=== PATIENT | male | born 1960 | race American Indian/Alaskan Native ===

== ENCOUNTER 2018-12-02 15:42 | Emergency (ER) | payer OTHER ==
[2018-12-02] MEDS ORDERED: PROVENTIL IH ONE ×2 (16:27→19:19)
--- NOTE | 2018-12-02 16:34 | Emergency Department Report ---
ED General Adult HPI - General Chief complaint: Dyspnea/Respdistress Stated complaint: HBP/TONYA Time Seen by Provider: 12/02/18 16:07 Source: patient Mode of arrival: Ambulatory Limitations: No Limitations - History of Present Illness Initial comments: Patient presents to emergency department with a chief complaint of increased shortness of breath or last couple days when lying flat. Patient states these symptoms have been present for greater than 5 years but have become worse over the last couple of days. Patient denies chest pain. Patient states that he has to use an inhaler periodically due to his shortness of breath. Patient also states he has not taken his blood pressure medications in 6 months -: Gradual Severity scale (0 -10): 0 Consistency: intermittent Improves with: none Worsens with: other (lying flat) Associated Symptoms: denies other symptoms Treatments Prior to Arrival: none - Related Data Previous Rx's Medication Instructions Recorded Last Taken Type ALBUTEROL NEB's [Proventil 0.083% 2.5 mg IH TID PRN #30 neb 12/02/18 Unknown Rx NEBS] Nebulizer [Truneb Nebulizer] 1 each MC TID #1 each 12/02/18 Unknown Rx amLODIPine [Norvasc] 5 mg PO DAILY #30 tab 12/02/18 Unknown Rx levoFLOXacin [Levaquin] 750 mg PO QDAY #5 tablet 12/02/18 Unknown Rx predniSONE [Deltasone] 20 mg PO QDAY #15 tab 12/02/18 Unknown Rx Allergies Allergy/AdvReac Type Severity Reaction Status Date / Time No Known Allergies Allergy Unverified 12/02/18 15:53 ED Review of Systems ROS: Stated complaint: HBP/TONYA Other details as noted in HPI Comment: All other systems reviewed and negative Constitutional: denies: chills, fever Eyes: denies: eye pain, eye discharge, vision change ENT: denies: ear pain, throat pain Respiratory: shortness of breath. denies: cough, wheezing Cardiovascular: denies: chest pain, palpitations Endocrine: no symptoms reported Gastrointestinal: denies: abdominal pain, nausea, diarrhea Genitourinary: denies: urgency, dysuria Musculoskeletal: denies: back pain, joint swelling, arthralgia Skin: denies: rash, lesions Neurological: denies: headache, weakness, paresthesias Psychiatric: denies: anxiety, depression Hematological/Lymphatic: denies: easy bleeding, easy bruising ED Past Medical Hx - Past Medical History Previous Medical History?: Yes Hx Hypertension: Yes - Surgical History Past Surgical History?: No - Social History Smoking Status: Never Smoker Substance Use Type: None - Medications Home Medications: Home Medications Medication Instructions Recorded Confirmed Last Taken Type ALBUTEROL NEB's [Proventil 0.083% 2.5 mg IH TID PRN #30 neb 12/02/18 Unknown Rx NEBS] Nebulizer [Truneb Nebulizer] 1 each MC TID #1 each 12/02/18 Unknown Rx amLODIPine [Norvasc] 5 mg PO DAILY #30 tab 12/02/18 Unknown Rx levoFLOXacin [Levaquin] 750 mg PO QDAY #5 tablet 12/02/18 Unknown Rx predniSONE [Deltasone] 20 mg PO QDAY #15 tab 12/02/18 Unknown Rx ED Physical Exam - General Limitations: No Limitations General appearance: alert, in no apparent distress - Head Head exam: Present: atraumatic, normocephalic - Eye Eye exam: Present: normal appearance, PERRL, EOMI - ENT ENT exam: Present: mucous membranes moist - Neck Neck exam: Present: normal inspection - Respiratory Respiratory exam: Present: other (Diminished breath sounds ). Absent: respiratory distress - Cardiovascular Cardiovascular Exam: Present: regular rate, normal rhythm. Absent: systolic murmur, diastolic murmur, rubs, gallop - GI/Abdominal GI/Abdominal exam: Present: soft, normal bowel sounds. Absent: distended, tenderness - Rectal Rectal exam: Present: deferred - Extremities Exam Extremities exam: Present: normal inspection - Back Exam Back exam: Present: normal inspection - Neurological Exam Neurological exam: Present: alert, oriented X3, CN II-XII intact. Absent: motor sensory deficit - Psychiatric Psychiatric exam: Present: normal affect, normal mood - Skin Skin exam: Present: warm, dry, intact, normal color. Absent: rash ED Course Vital Signs 12/02/18 12/02/18 12/02/18 15:52 16:10 16:13 Temperature 98.8 F 98.8 F Pulse Rate 112 H 100 H 103 H Pulse Rate [ Posterior Bilateral Throughout] Respiratory 18 21 15 Rate Respiratory Rate [Posterior Bilateral Throughout] Blood Pressure 181/122 Blood Pressure 172/109 [Left] O2 Sat by Pulse 95 94 Oximetry 12/02/18 12/02/18 12/02/18 16:14 16:15 16:31 Temperature Pulse Rate 105 H 100 H Pulse Rate [ Posterior Bilateral Throughout] Respiratory 15 15 19 Rate Respiratory Rate [Posterior Bilateral Throughout] Blood Pressure 172/109 172/109 Blood Pressure [Left] O2 Sat by Pulse 94 96 93 Oximetry 12/02/18 12/02/18 12/02/18 16:45 17:31 17:56 Temperature Pulse Rate 97 H 82 103 H Pulse Rate [ Posterior Bilateral Throughout] Respiratory 26 H 17 19 Rate Respiratory Rate [Posterior Bilateral Throughout] Blood Pressure 172/109 172/109 Blood Pressure 170/103 [Left] O2 Sat by Pulse 93 93 93 Oximetry 12/02/18 12/02/18 12/02/18 18:00 18:15 18:31 Temperature Pulse Rate 88 92 H 90 Pulse Rate [ Posterior Bilateral Throughout] Respiratory 25 H 24 20 Rate Respiratory Rate [Posterior Bilateral Throughout] Blood Pressure 170/99 170/99 170/99 Blood Pressure [Left] O2 Sat by Pulse 87 92 90 Oximetry 12/02/18 12/02/18 12/02/18 18:45 19:00 19:15 Temperature Pulse Rate 98 H 90 100 H Pulse Rate [ Posterior Bilateral Throughout] Respiratory 19 21 25 H Rate Respiratory Rate [Posterior Bilateral Throughout] Blood Pressure 170/99 166/103 164/95 Blood Pressure [Left] O2 Sat by Pulse 92 87 89 Oximetry 12/02/18 12/02/18 12/02/18 19:26 19:31 19:45 Temperature Pulse Rate 99 H 99 H Pulse Rate [ 98 H Posterior Bilateral Throughout] Respiratory 10 L 22 Rate Respiratory 18 Rate [Posterior Bilateral Throughout] Blood Pressure 164/95 164/95 Blood Pressure [Left] O2 Sat by Pulse 94 93 Oximetry 12/02/18 12/02/18 19:46 20:00 Temperature Pulse Rate 102 H Pulse Rate [ 95 H Posterior Bilateral Throughout] Respiratory 27 H Rate Respiratory 16 Rate [Posterior Bilateral Throughout] Blood Pressure 167/94 Blood Pressure [Left] O2 Sat by Pulse 88 Oximetry ED Medical Decision Making - Lab Data Result diagrams: 12/02/18 16:45 12/02/18 16:45 Lab Results 12/02/18 12/02/18 12/02/18 Range/Units 16:45 16:45 16:45 WBC 4.7 (4.5-11.0) K/mm3 RBC 4.70 (3.65-5.03) M/mm3 Hgb 13.2 (11.8-15.2) gm/dl Hct 40.4 (35.5-45.6) % MCV 86 (84-94) fl MCH 28 (28-32) pg MCHC 33 (32-34) % RDW 15.1 (13.2-15.2) % Plt Count 191 (140-440) K/mm3 Lymph % (Auto) 40.9 H (13.4-35.0) % Bladen % (Auto) 9.4 H (0.0-7.3) % Eos % (Auto) 9.2 H (0.0-4.3) % Baso % (Auto) 0.7 (0.0-1.8) % Lymph # 1.9 (1.2-5.4) K/mm3 Bladen # 0.4 (0.0-0.8) K/mm3 Eos # 0.4 (0.0-0.4) K/mm3 Baso # 0.0 (0.0-0.1) K/mm3 Seg Neutrophils % 39.8 L (40.0-70.0) % Seg Neutrophils # 1.9 (1.8-7.7) K/mm3 PT 13.1 (12.2-14.9) Sec. INR 0.95 (0.87-1.13) APTT 31.3 (24.2-36.6) Sec. Sodium 142 (137-145) mmol/L Potassium 4.2 (3.6-5.0) mmol/L Chloride 100.2 (98-107) mmol/L Carbon Dioxide 33 H (22-30) mmol/L Anion Gap 13 mmol/L BUN 8 L (9-20) mg/dL Creatinine 0.8 (0.8-1.5) mg/dL Estimated GFR > 60 ml/min BUN/Creatinine Ratio 10 % Glucose 129 H (75-100) mg/dL Calcium 9.7 (8.4-10.2) mg/dL Total Bilirubin 0.90 (0.1-1.2) mg/dL AST 13 (5-40) units/L ALT 15 (7-56) units/L Alkaline Phosphatase 55 (35-129) units/L Troponin T < 0.010 (0.00-0.029) ng/mL NT-Pro-B Natriuret Pep 41.44 (0-900) pg/mL Total Protein 7.3 (6.3-8.2) g/dL Albumin 4.1 (3.9-5) g/dL Albumin/Globulin Ratio 1.3 % 12/02/18 Range/Units 19:08 WBC (4.5-11.0) K/mm3 RBC (3.65-5.03) M/mm3 Hgb (11.8-15.2) gm/dl Hct (35.5-45.6) % MCV (84-94) fl MCH (28-32) pg MCHC (32-34) % RDW (13.2-15.2) % Plt Count (140-440) K/mm3 Lymph % (Auto) (13.4-35.0) % Bladen % (Auto) (0.0-7.3) % Eos % (Auto) (0.0-4.3) % Baso % (Auto) (0.0-1.8) % Lymph # (1.2-5.4) K/mm3 Bladen # (0.0-0.8) K/mm3 Eos # (0.0-0.4) K/mm3 Baso # (0.0-0.1) K/mm3 Seg Neutrophils % (40.0-70.0) % Seg Neutrophils # (1.8-7.7) K/mm3 PT (12.2-14.9) Sec. INR (0.87-1.13) APTT (24.2-36.6) Sec. Sodium (137-145) mmol/L Potassium (3.6-5.0) mmol/L Chloride (98-107) mmol/L Carbon Dioxide (22-30) mmol/L Anion Gap mmol/L BUN (9-20) mg/dL Creatinine (0.8-1.5) mg/dL Estimated GFR ml/min BUN/Creatinine Ratio % Glucose (75-100) mg/dL Calcium (8.4-10.2) mg/dL Total Bilirubin (0.1-1.2) mg/dL AST (5-40) units/L ALT (7-56) units/L Alkaline Phosphatase (35-129) units/L Troponin T < 0.010 (0.00-0.029) ng/mL NT-Pro-B Natriuret Pep (0-900) pg/mL Total Protein (6.3-8.2) g/dL Albumin (3.9-5) g/dL Albumin/Globulin Ratio % - EKG Data -: EKG Interpreted by Me EKG shows normal: sinus rhythm Rate: tachycardia - Radiology Data Radiology results: report reviewed - Medical Decision Making Patient ambulated without O2 and pulse ox was 95% upon return internal Discussed results with the patient Patient states the breathing treatment improved his breathing Critical care attestation.: If time is entered above; I have spent that time in minutes in the direct care of this critically ill patient, excluding procedure time. ED Disposition Clinical Impression: Dyspnea, Hypertension Disposition: TO HOME OR SELFCARE Is pt being admited?: No Does the pt Need Aspirin: No Condition: Stable Instructions: Dyspnea (ED), Hypertension (ED) Additional Instructions: return if worse Prescriptions: ALBUTEROL NEB's [Proventil 0.083% NEBS] 2.5 mg IH TID PRN #30 neb PRN Reason: Wheezing amLODIPine [Norvasc] 5 mg PO DAILY #30 tab levoFLOXacin [Levaquin] 750 mg PO QDAY #5 tablet Nebulizer [Truneb Nebulizer] 1 each MC TID #1 each predniSONE [Deltasone] 20 mg PO QDAY #15 tab Time of Disposition: 20:28
[2018-12-02 17:23] LABS: Basophils % (Auto) 0.7 % (0.0-1.8); Eosinophils # (Auto) 0.4 K/mm3 (0.0-0.4); Eosinophils % (Auto) 9.2 % (0.0-4.3); Hematocrit 40.4 % (35.5-45.6); Hemoglobin 13.2 gm/dl (11.8-15.2); Lymphocytes # (Auto) 1.9 K/mm3 (1.2-5.4); Lymphocytes % (Auto) 40.9 % (13.4-35.0); Mean Corpuscular HGB Conc 33 % (32-34); Mean Corpuscular Volume 86 fl (84-94); Monocytes # (Auto) 0.4 K/mm3 (0.0-0.8); Monocytes % (Auto) 9.4 % (0.0-7.3); Platelet Count 191 K/mm3 (140-440); Red Cell Distribution Width 15.1 % (13.2-15.2)
--- NOTE | 2018-12-02 17:32 | XRay Report ---
FINAL REPORT EXAM: XR CHEST 1V AP HISTORY: sob TECHNIQUE: Frontal portable examination of the chest PRIORS: None FINDINGS: Nonspecific elevation right diaphragm. Small patchy opacity along the right diaphragm may be scar, at electasis, or small infiltrate. Left lung clear. No pneumothorax or pleural effusion. Atherosclerotic change thoracic aorta and degen erative spondylosis thoracic spine. No acute displaced fracture. Cardiac silhouette size at upper wong its of normal without evidence of vascular congestion. IMPRESSION: Nonspecific elevation right diaphragm. Small patchy opacity along the right diaphragm may be scar, at electasis, or small infiltrate.
[2018-12-02 17:36] LABS: INR 0.95 (0.87-1.13)
[2018-12-02 17:37] LABS: Partial Thromboplastin Time 31.3 Sec. (24.2-36.6)
[2018-12-02 17:51] LABS: Alanine Aminotransferase 15 units/L (7-56); Albumin 4.1 g/dL (3.9-5); BUN/Creatinine Ratio 10; Blood Urea Nitrogen 8 mg/dL (9-20); Calcium 9.7 mg/dL (8.4-10.2); Hemolysis Index 5
[2018-12-04 12:27] VITALS: BP 167/94
== END 2018-12-02 20:38 | disposition home or self-care (01) ==
LOC: ED 15:42
DX: R06.02 Shortness of breath (principal); R06.00 Dyspnea, unspecified; I10 Essential (primary) hypertension
CPT/HCPCS: 36415; 71045; 80053; 83880; 84484; 85025; 85610; 85730; 93005; 93010; 94640